=== PATIENT | female | born 1990 | race Caucasian/White ===

== ENCOUNTER 2021-11-03 18:32 | Emergency (ER) | payer OTHER ==
[~2021-11-03] VITALS: Ht 167.6 cm; Wt 81.6 kg
[2021-11-03] MEDS ORDERED: DOLOGEN 325-11 EACH PO (21:00)
== END 2021-11-03 21:07 | disposition home or self-care (01) ==
LOC: ER 18:32
DX: K52.9 Noninfective gastroenteritis and colitis, unspecified (principal); J06.9 Acute upper respiratory infection, unspecified